=== PATIENT | male | born 1955 ===

== ENCOUNTER 2017-08-13 17:01 | Emergency (ER) | payer OTHER ==
[2017-08-13 17:15] VITALS: TEMP 98; O2SAT 97
[2017-08-13] MEDS ORDERED: Lidocaine 1% Inj (20ml) INFIL STA (17:48)
[2017-08-13] MEDS ORDERED: Lidocaine 1% Inj (20ml) ONE (17:54)
--- NOTE | 2017-08-13 18:02 | C.PDOC ---
History Of Present Illness 62 year old male presents to the ED with complaints of a laceration to his chin sustained just prior to arrival while doing work around the house. He denies any other injuries or other complaints at this time. Time Seen by Provider: 08/13/17 17:40 Chief Complaint (Nursing): Abnormal Skin Integrity History Per: Patient History/Exam Limitations: no limitations Onset/Duration Of Symptoms: Hrs Current Symptoms Are (Timing): Still Present Location Of Injury: Anterior: Face (chin ) Quality Of Symptoms: Painful Recent travel outside of the [place]: No Past Medical History Reviewed: Historical Data, Nursing Documentation, Vital Signs Vital Signs: Last Vital Signs Temp 98 F 08/13/17 17:11 Pulse 85 08/13/17 18:54 Resp 16 08/13/17 18:54 BP 185/99 H 08/13/17 18:54 Pulse Ox 97 08/13/17 19:06 - Medical History PMH: Diabetes, HTN, Hypercholesterolemia - [facility] Procedures CONTRAST ARTERIOGRAM-LEG (07/27/14) OTHER SKIN & SUBQ I D (07/21/14) PHYSICAL THERAPY NEC (07/03/15) SOFT TISSUE INCISION NEC (07/21/14) TOE AMPUTATION (07/09/15) Family History: States: Unknown Family Hx - Social History Hx Alcohol Use: Yes Hx Substance Use: No - Immunization History Hx Influenza Vaccination: Yes Review Of Systems Constitutional: Negative for: Fever Skin: Positive for: Other (laceration to the chin ) Neurological: Negative for: Weakness, Numbness Physical Exam - Physical Exam Appears: Non-toxic, No Acute Distress Skin: Warm, Dry Head: Normacephalic, Laceration (2.5 cm linear laceration to right side of chin ) Eye(s): bilateral: Normal Inspection, PERRL, EOMI Nose: Normal Oral Mucosa: Moist Tongue: Normal Appearing, No Swelling Lips: Normal Appearing, No Swelling Teeth: Normal Dentition Throat: Normal, No Erythema, No Exudate Neck: Normal ROM, Supple Chest: Symmetrical, No Deformity Cardiovascular: Rhythm Regular, No Murmur Respiratory: Normal Breath Sounds, No Wheezing Extremity: Bilateral: Atraumatic, Normal Color And Temperature, Normal ROM Neurological/Psych: Oriented x3, Normal Speech Gait: Steady ED Course And Treatment O2 Sat by Pulse Oximetry: 97 (room air ) Pulse Ox Interpretation: Normal Laceration - Laceration Repair Chin Laceration Wound Length (In cm): 2.5 Description Of Wound: Linear Anesthesia: Lidocaine 1% Wound Examination: Irrigated With Saline, No FB With Wound Exploration Wound Debridement/Revision: Wound Debrided Wound Closure: Suture Suture Technique And Material Used: Interrupted (3), Nylon (4-0) Wound Complexity: Simple Medical Decision Making Medical Decision Making: Patient with chin laceration. Patient found to be hypertensive, does not take meds. Patient was given clonidine and laceration repair was performed. On re- eval patient feeling well denies headache or dizziness. Advise patient to follow up with PCP regarding HTN. Disposition Counseled Patient/Family Regarding: Diagnosis, Need For Followup - Disposition Disposition: HOME/ ROUTINE Disposition Time: 18:10 Condition: GOOD Additional Instructions: Mantenga el christy limpia y seca. Puede lavarse suavemente con agua y jabn, no use alcohol ni solucin de yodo. Cambie el apsito 1-2 veces al da. Regrese a ER si se presenta fiebre, enrojecimiento o hinchazn alrededor de la herida, pus en la herida. Por favor, siga con manrique mdico de cabecera, clnica, o atenci n de urgencia para la eliminacin de sutura en 7-10 correia Prescriptions: Cephalexin [cephalexin] 500 mg PO Q12 #10 cap Instructions: Care For Your Stitches (ED) Forms: [employer] (Bur[place]ian) Print Language: SWAZI - POA Present On Arrival: None - Clinical Impression Clinical Impression: Laceration of chin - PA / DENTURES LAB TECHNICIAN / Resident Statement MD/DO has reviewed & agrees with the documentation as recorded. - Scribe Statement The provider has reviewed the documentation as recorded by the Scribe Jammie Zarate All medical record entries made by the Scribe were at my direction and personally dictated by me. I have reviewed the chart and agree that the record accurately reflects my personal performance of the history, physical exam, medical decision making, and the department course for this patient. I have also personally directed, reviewed, and agree with the discharge instructions and disposition.
[2017-08-13] MEDS ORDERED: Bacitracin 500 Units/gm Oint Foilpak UD ONE (18:10)
[2017-08-13 18:39] VITALS: RESP 16
[2017-08-13 18:55] VITALS: BP 185/99; PULSE 85
== END 2017-08-13 18:54 | disposition home or self-care (01) ==
LOC: C.ER 17:01
DX: S01.81XA Laceration without foreign body of other part of head, initial encounter (principal); W45.8XXA Other foreign body or object entering through skin, initial encounter; Y93.E9 Activity, other interior property and clothing maintenance; Y92.009 Unspecified place in unspecified non-institutional (private) residence as the place of occurrence of the external cause